=== PATIENT | male | born 1970 | race Caucasian/White ===

== ENCOUNTER 2017-11-21 12:22 | Inpatient (IN) | payer SELFPAY ==
[~2017-11-21] VITALS: Ht 175.3 cm; Wt 142.2 kg
[2017-11-21 13:05] LABS: HEMATOCRIT 45.1 % (38.0-50.0); HEMOGLOBIN 15.7 G/DL (12.5-16.6); MCH 31.5 PG (29.0-34.0); MCHC 34.8 G/DL (30.0-36.0); MCV 90.6 FL (86-99); PLATELET COUNT 236 K/uL (156-360); RBC DIS.WIDTH-CV 13.4 % (11.8-14.6); RBC DIS.WIDTH-SD 44.5 % (39-53); RED BLOOD COUNT 4.98 M/uL (4.00-5.50); WHITE BLOOD COUNT 14.4 K/uL (4.1-10.2)
[2017-11-21 13:19] LABS: ALBUMIN 4.1 g/dL (3.2-4.8); CHLORIDE 101 mEq/L (99-109); POTASSIUM 3.8 mEq/L (3.7-5.4); SODIUM 141 mEq/L (136-147)
[2017-11-21 13:21] LABS: GLUCOSE 111 mg/dL (70-99)
[2017-11-21 13:22] LABS: TOTAL PROTEIN 7.9 g/dL (6.4-8.3)
[2017-11-21 13:23] LABS: TOTAL BILIRUBIN 0.8 mg/dL (0.0-1.0)
[2017-11-21 13:25] LABS: ALKALINE PHOSPHATASE 98 IU/L (3-129); CREATININE 1.6 mg/dL (0.6-1.3); GFR ESTIMATE (CALCULATED) 50 mL/min/ (58.99-99999)
[2017-11-21 13:26] LABS: UREA NITROGEN (BUN) 13 mg/dL (9-23)
[2017-11-21 13:27] LABS: AST (GOT) 33 IU/L (2-34)
[2017-11-21 13:28] LABS: ALT (GPT) 46 IU/L (3-49)
[2017-11-21 14:44] LABS: LIPASE 6 U/L (1.0-51.0)
[2017-11-21 17:23] LABS: APPEARANCE CLEAR ((CLEAR)); BILIRUBIN NEGATIVE; BLOOD SMALL; COLOR YELLOW ((YELLOW)); GLUCOSE (STRIP) NEGATIVE; KETONES 20; LEUKOCYTES NEGATIVE; NITRITE NEGATIVE; PROTEIN (STRIP) 30; SPECIFIC GRAVITY 1.026 (1.000-1.030)
[2017-11-21 17:28] LABS: BACTERIA NONE SEEN /HPF; EPITHELIAL CELLS RARE /HPF; MUCUS TRACE /LPF; RED BLOOD CELLS 0-5 /HPF (0-5); UCUL ADDED? NO; WHITE BLOOD CELLS 0-5 /HPF (0-5)
[2017-11-21] MEDS ORDERED: EXCEDRIN EXTRA1 EACH PO (17:41)
[2017-11-21 21:15] LABS: HEMATOCRIT 43.2 % (38.0-50.0); HEMOGLOBIN 14.9 G/DL (12.5-16.6); MCH 31.1 PG (29.0-34.0); MCHC 34.5 G/DL (30.0-36.0); MCV 90.2 FL (86-99); PLATELET COUNT 211 K/uL (156-360); RBC DIS.WIDTH-CV 13.2 % (11.8-14.6); RED BLOOD COUNT 4.79 M/uL (4.00-5.50); WHITE BLOOD COUNT 14.4 K/uL (4.1-10.2)
[2017-11-21 22:06] VITALS: BP 167/88
[2017-11-21 23:37] VITALS: BP 141/74
[2017-11-22 06:15] LABS: CHLORIDE 102 MEQ/L (99-109); CREATININE 1.4 MG/DL (0.6-1.3); GFR ESTIMATE (CALCULATED) 59 mL/min/ (58.99-99999); GLUCOSE 100 mg/dL (70-99); POTASSIUM 3.7 MEQ/L (3.7-5.4); SODIUM 141 MEQ/L (136-147); UREA NITROGEN (BUN) 10 mg/dL (9-23)
[2017-11-22 06:54] VITALS: BP 173/82
[2017-11-22 11:25] VITALS: BP 129/79
[2017-11-22 16:47] VITALS: BP 140/76
[2017-11-22 18:52] VITALS: BP 165/84
[2017-11-22 22:46] VITALS: BP 150/78
[2017-11-23 01:26] LABS: APPEARANCE CLEAR ((CLEAR)); BILIRUBIN NEGATIVE; BLOOD SMALL; COLOR STRAW ((YELLOW)); GLUCOSE (STRIP) NEGATIVE; KETONES 5; LEUKOCYTES NEGATIVE; NITRITE NEGATIVE; PROTEIN (STRIP) NEGATIVE; SPECIFIC GRAVITY 1.008 (1.000-1.030)
[2017-11-23 01:34] LABS: BACTERIA NONE SEEN /HPF; EPITHELIAL CELLS NONE SEEN /HPF; MUCUS NONE SEEN /LPF; RED BLOOD CELLS 0-5 /HPF (0-5); UCUL ADDED? NO; WHITE BLOOD CELLS 0-5 /HPF (0-5)
[2017-11-23 03:34] VITALS: BP 150/85
[2017-11-23 06:06] LABS: HEMOGLOBIN 14.8 G/DL (12.5-16.6); MCH 30.7 PG (29.0-34.0); MCHC 33.6 G/DL (30.0-36.0); MCV 91.3 FL (86-99); PLATELET COUNT 208 K/uL (156-360); RBC DIS.WIDTH-CV 13.2 % (11.8-14.6); RBC DIS.WIDTH-SD 43.9 % (39-53); RED BLOOD COUNT 4.82 M/uL (4.00-5.50); WHITE BLOOD COUNT 11.4 K/uL (4.1-10.2)
[2017-11-23 06:28] LABS: CHLORIDE 102 MEQ/L (99-109); CREATININE 1.2 MG/DL (0.6-1.3); GFR ESTIMATE (CALCULATED) > 59 mL/min/ (58.99-99999); GLUCOSE 99 mg/dL (70-99); POTASSIUM 3.5 MEQ/L (3.7-5.4); SODIUM 140 MEQ/L (136-147); UREA NITROGEN (BUN) 10 mg/dL (9-23)
[2017-11-23 06:55] VITALS: BP 156/88
[2017-11-23 11:00] VITALS: BP 131/99
[2017-11-23] MEDS ORDERED: TAMSULOSIN HCL0.4 MG PO (14:53)
[2017-11-23] MEDS ORDERED: ROXICODONE5 MG PO (14:54)
[2017-11-23 15:00] VITALS: BP 139/82
== END 2017-11-23 17:30 | disposition home or self-care (01) | DRG 694 ==
LOC: EME 12:22 → 5EAST 20:10 → EDOF 20:10 → ENRESERV 20:15 → 5EAST 21:27
PROVIDERS: Hospitalist; Physician Assistant
DX: N13.2 Hydronephrosis with renal and ureteral calculous obstruction (principal); Z68.42 Body mass index [BMI] 45.0-49.9, adult; E66.01 Morbid (severe) obesity due to excess calories; K76.0 Fatty (change of) liver, not elsewhere classified; N17.9 Acute kidney failure, unspecified; R01.1 Cardiac murmur, unspecified; E66.9 Obesity, unspecified; Z87.891 Personal history of nicotine dependence
CPT/HCPCS: 74177; 80048; 80053; 81003; 82565; 83605; 83690; 84520; 85027; 87040; 94760; 94799; 99281; 99285; J0696; J1170; J1644; J2270; J2405; J3010; J7030